=== PATIENT | male | born 1960 | race Caucasian/White ===

== ENCOUNTER → 2018-05-13 | Outpatient (CLI) | payer BC ==
--- NOTE | 2018-05-13 16:48 | KCIC ---
3 views of bilateral knees without comparison for chronic bilateral knee pain, worsening for the past 5 months. FINDINGS: The left knee involves minimal narrowing of the medial joint compartment and the patellofemoral joint compartment, with no significant suprapatellar effusion, and no fracture or acute osseous or value. The right knee demonstrates moderate narrowing of the medial joint compartment with osteophytosis at this level as well as vacuum phenomenon within the medial compartment. There is also more moderate narrowing of the patellofemoral joint compartment, and a small patellar enthesophyte. Small suprapatellar joint effusion is suspected. No fracture or acute osseous abnormality is evident. Lateral joint compartment is well-maintained bilaterally. IMPRESSION: 1. 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 Electronically signed by: Hema Haro MD (05/13/2018 4:44 PM) [id number]
== END | disposition home or self-care (01) ==
LOC: KCIC 15:44
PROVIDERS: ATTEND Nurse Practitioner Family
DX: M17.0 Bilateral primary osteoarthritis of knee (principal)
CPT/HCPCS: 73562